=== PATIENT | female | born 1960 | race Caucasian/White ===

== ENCOUNTER → 2017-03-18 | Outpatient (CLI) | payer BC | LOC: MAMMO 10:06 | DX: Z12.31 Encounter for screening mammogram for malignant neoplasm of breast (principal) | CPT/HCPCS: G0202 ==

== ENCOUNTER → 2017-09-22 | Outpatient (CLI) | payer OTHER ==
[2017-09-22 08:01] LABS: ALBUMIN 3.8 g/dL (3.5-5.0); BUN/CREATININE RATIO 28.6 (6.0-26.0); POTASSIUM 4.3 mmol/L (3.6-5.0); TOTAL BILIRUBIN 0.5 mg/dL (0.2-1.3)
== END ==
LOC: LAB 07:32 → RAD 07:32
PROVIDERS: Family Medicine
DX: J06.9 Acute upper respiratory infection, unspecified (principal); Z13.1 Encounter for screening for diabetes mellitus; Z13.6 Encounter for screening for cardiovascular disorders; K57.50 Diverticulosis of both small and large intestine without perforation or abscess without bleeding

== ENCOUNTER → 2017-09-28 | Outpatient (CLI) | payer OTHER | LOC: LAB 08:38 | DX: K57.50 Diverticulosis of both small and large intestine without perforation or abscess without bleeding (principal) ==

== ENCOUNTER → 2018-04-14 | Outpatient (CLI) | payer OTHER | LOC: LAB 08:39 | DX: N30.01 Acute cystitis with hematuria (principal) ==

== ENCOUNTER → 2018-06-15 | Outpatient (CLI) | payer OTHER | LOC: MAMMO 13:47 | DX: Z12.31 Encounter for screening mammogram for malignant neoplasm of breast (principal) ==

== ENCOUNTER → 2019-02-08 | Outpatient (CLI) | payer OTHER ==
[2019-02-08 15:56] LABS: BASO # 0.1 (0.02-0.10); EOS # 0.3 (0.04-0.40); EOS % 3.7 % (1.0-5.0); HEMATOCRIT 43.7 % (37.0-47.0); HEMOGLOBIN 14.7 g/dL (12.5-16.0); LYMPH# 1.8 (1.50-4.00); MEAN CELL VOLUME 89 fl (78-100); MEAN CORPUSCULAR HEMOGLOBIN 30 pg (27-31); MEAN CORPUSCULAR HGB CONC 34 g/dL (33-37); MEAN PLATELET VOLUME 9.3 fl (7.4-10.4); MONO # 0.6 (0.20-0.80); NEU # 4.3 (1.40-6.50); PLATELET COUNT 255 K/mm3 (130-400); RED BLOOD COUNT 4.93 M/mm3 (4.10-5.30); RED CELL DISTRIBUTION WIDTH 12.9 % (11.5-14.5); WHITE BLOOD COUNT 7.1 K/mm3 (4.8-10.8)
[2019-02-08 16:06] LABS: POTASSIUM 4.1 mmol/L (3.5-5.1)
[2019-02-08 16:07] LABS: ALBUMIN 4.2 g/dL (3.5-5.0)
[2019-02-08 16:08] LABS: CALCIUM 9.8 mg/dL (8.3-10.5)
[2019-02-08 16:09] LABS: TOTAL PROTEIN 8.2 g/dL (6.4-8.3)
[2019-02-08 16:11] LABS: TOTAL BILIRUBIN 0.3 mg/dL (0.2-1.2)
== END ==
LOC: LAB 15:47
PROVIDERS: Family Medicine
DX: Z00.00 Encounter for general adult medical examination without abnormal findings (principal); Z13.220 Encounter for screening for lipoid disorders

== ENCOUNTER → 2019-02-14 | Outpatient (CLI) | payer OTHER ==
[~2019-02-14] VITALS: Ht 162.6 cm; Wt 112.7 kg
[~2019-02-14] MED LIST: CYCLOBENZAPRINE10 M1 PO; FLONASE ALLERG9.9 ML NS; LEXAPRO 10MG10 MG PO; XANAX0.25 M1 PO
[2019-02-14 16:24] VITALS: BP 134/84
== END ==
LOC: RAD 15:33 → LAB 15:33
DX: R07.9 Chest pain, unspecified (principal)

== ENCOUNTER → 2019-06-16 | Outpatient (CLI) | payer OTHER ==
[2019-02-14 16:24] VITALS: BP 134/84
== END ==
LOC: MAMMO 09:15
DX: Z12.31 Encounter for screening mammogram for malignant neoplasm of breast (principal)

== ENCOUNTER → 2019-12-21 | Outpatient (CLI) | payer OTHER ==
[2019-02-14 16:24] VITALS: BP 134/84
== END ==
LOC: LAB 12-19 11:59
DX: Z20.828 Contact with and (suspected) exposure to other viral communicable diseases (principal)

== ENCOUNTER → 2020-05-24 | Outpatient (CLI) | payer OTHER ==
[2019-02-14 16:24] VITALS: BP 134/84
[2020-05-24 08:46] LABS: ALBUMIN 4.2 g/dL (3.5-5.0)
[2020-05-24 08:47] LABS: CALCIUM 9.3 mg/dL (8.3-10.5)
[2020-05-24 08:48] LABS: TOTAL PROTEIN 7.1 g/dL (6.4-8.3)
[2020-05-24 08:50] LABS: TOTAL BILIRUBIN 0.4 mg/dL (0.2-1.2)
[2020-05-24 08:58] LABS: EOS # 0.2 (0.04-0.40); EOS % 2.9 % (1.0-5.0); HEMATOCRIT 44.5 % (37.0-47.0); HEMOGLOBIN 15.1 g/dL (12.5-16.0); LYMPH# 1.5 (1.50-4.00); MEAN CELL VOLUME 88 fl (78-100); MEAN CORPUSCULAR HEMOGLOBIN 30 pg (27-31); MEAN CORPUSCULAR HGB CONC 34 g/dL (33-37); MEAN PLATELET VOLUME 9.4 fl (7.4-10.4); MONO # 0.5 (0.20-0.80); NEU # 3.3 (1.40-6.50); PLATELET COUNT 246 K/mm3 (130-400); RED BLOOD COUNT 5.05 M/mm3 (4.10-5.30); RED CELL DISTRIBUTION WIDTH 12.4 % (11.5-14.5); WHITE BLOOD COUNT 5.4 K/mm3 (4.8-10.8)
== END ==
LOC: LAB 05-23 11:22
PROVIDERS: Family Medicine
DX: Z00.00 Encounter for general adult medical examination without abnormal findings (principal); E78.5 Hyperlipidemia, unspecified

== ENCOUNTER → 2020-06-19 | Outpatient (CLI) | payer OTHER ==
[2019-02-14 16:24] VITALS: BP 134/84
== END ==
LOC: MAMMO 09:58
DX: Z12.31 Encounter for screening mammogram for malignant neoplasm of breast (principal)

== ENCOUNTER → 2021-05-29 | Outpatient (CLI) | payer OTHER ==
[2021-05-29 10:38] LABS: BASO # 0.03 K/mm3 (0.02-0.10); EOS # 0.33 K/mm3 (0.04-0.40); EOS % 4.4 % (1.0-5.0); HEMATOCRIT 47.6 % (37.0-47.0); HEMOGLOBIN 15.7 g/dL (12.5-16.0); LYMPH# 1.27 K/mm3 (1.50-4.00); MEAN CELL VOLUME 91 fl (78-100); MEAN CORPUSCULAR HEMOGLOBIN 30 pg (27-31); MEAN CORPUSCULAR HGB CONC 33 g/dL (33-37); MONO # 0.72 K/mm3 (0.20-0.80); NEU # 5.07 K/mm3 (1.40-6.50); PLATELET COUNT 269 K/mm3 (130-400); RED BLOOD COUNT 5.23 M/mm3 (4.10-5.30); RED CELL DISTRIBUTION WIDTH 12.2 % (11.5-14.5); WHITE BLOOD COUNT 7.5 K/mm3 (4.8-10.8)
[2021-05-29 10:44] LABS: ALBUMIN 4.3 g/dL (3.4-4.8); POTASSIUM 4.5 mmol/L (3.5-5.1)
[2021-05-29 10:45] LABS: CALCIUM 9.6 mg/dL (8.3-10.5)
[2021-05-29 10:47] LABS: TOTAL PROTEIN 7.2 g/dL (6.2-8.1)
[2021-05-29 10:48] LABS: TOTAL BILIRUBIN 0.7 mg/dL (0.2-1.2)
== END ==
LOC: LAB 10:27
PROVIDERS: Family Medicine
DX: E78.5 Hyperlipidemia, unspecified (principal)

== ENCOUNTER → 2021-06-11 | Outpatient (CLI) | payer OTHER | LOC: RAD 14:26 | DX: M17.12 Unilateral primary osteoarthritis, left knee (principal) ==

== ENCOUNTER → 2021-06-19 | Outpatient (CLI) | payer OTHER | LOC: RAD 09:19 | DX: M17.12 Unilateral primary osteoarthritis, left knee (principal) ==

== ENCOUNTER → 2021-06-27 | Outpatient (CLI) | payer OTHER | LOC: MAMMO 09:02 | DX: Z12.31 Encounter for screening mammogram for malignant neoplasm of breast (principal) ==

== ENCOUNTER → 2021-07-17 | Outpatient (CLI) | payer OTHER | LOC: LAB 11:23 | DX: N39.0 Urinary tract infection, site not specified (principal) ==

== ENCOUNTER → 2021-08-12 | Outpatient (CLI) | payer OTHER | LOC: RAD 08:07 | DX: U07.1 COVID-19 (principal) ==

== ENCOUNTER → 2021-10-31 | Outpatient (CLI) | payer OTHER ==
[2021-10-31 09:39] LABS: URINE APPEARANCE HAZY; URINE COLOR YELLOW
[2021-10-31 09:52] LABS: URINE BILIRUBIN NEGATIVE (NEGATIVE); URINE BLOOD TRACE (NEGATIVE); URINE GLUCOSE NEGATIVE (NEGATIVE); URINE KETONE NEGATIVE (NEGATIVE); URINE LEUKOCYTE ESTERASE NEGATIVE (NEGATIVE); URINE NITRATE NEGATIVE (NEGATIVE); URINE PROTEIN(semi-quant) NEGATIVE (NEGATIVE); URINE UROBILINOGEN NORMAL (NORMAL); URINE WBC 0-1 /hpf (0-3)
== END ==
LOC: LAB 08:05
PROVIDERS: Physician Assistant
DX: R30.9 Painful micturition, unspecified (principal)

== ENCOUNTER → 2021-12-13 | Outpatient (CLI) | payer OTHER | LOC: RAD 09:44 | DX: N13.30 Unspecified hydronephrosis (principal); N30.20 Other chronic cystitis without hematuria ==

== ENCOUNTER → 2022-05-28 | Outpatient (CLI) | payer OTHER ==
[~2022-05-28] MED LIST changes: +ASPIRIN E.C. 8181 MG; +CLARITIN LIQUI-10 MG PO; +ESCITALOPRAM20 MG PO; +ONDANSETRON HYDR4 MG PO; +VALIUM 2MG T2 MG/TAB PO
== END ==
LOC: LAB 10:39
DX: Z00.00 Encounter for general adult medical examination without abnormal findings (principal); Z12.39 Encounter for other screening for malignant neoplasm of breast; E78.5 Hyperlipidemia, unspecified; J30.9 Allergic rhinitis, unspecified; E66.9 Obesity, unspecified; F32.A Depression, unspecified; E55.9 Vitamin D deficiency, unspecified; I10 Essential (primary) hypertension

== ENCOUNTER → 2022-06-11 | Outpatient (CLI) | payer OTHER | LOC: RAD 08:14 | DX: M17.12 Unilateral primary osteoarthritis, left knee (principal) ==

== ENCOUNTER → 2022-10-01 | Outpatient (CLI) | payer OTHER | LOC: LAB 10:07 | DX: M17.11 Unilateral primary osteoarthritis, right knee (principal) ==

== ENCOUNTER → 2023-06-16 | Outpatient (CLI) | payer OTHER ==
[~2023-06-16] VITALS: Ht 162.6 cm; Wt 112.7 kg
[2023-06-16 08:00] VITALS: BP 141/90
[2023-06-16 09:30] VITALS: BP 159/90
== END ==
LOC: AMSURD 07:46
DX: R11.0 Nausea (principal); R51.9 Headache, unspecified
CPT/HCPCS: J1885; J2405; J7030

== ENCOUNTER → 2023-07-01 | Outpatient (CLI) | payer OTHER | LOC: MAMMO 09:03 | DX: Z00.00 Encounter for general adult medical examination without abnormal findings (principal); Z12.31 Encounter for screening mammogram for malignant neoplasm of breast ==

== ENCOUNTER → 2023-09-21 | Outpatient (CLI) | payer OTHER ==
[2023-09-21 09:36] LABS: PH-URINE 5.5 (5.0 - 8.0); URINE APPEARANCE CLOUDY (CLEAR); URINE COLOR YELLOW (YELLOW); URINE GLUCOSE NEGATIVE (NEGATIVE); URINE PROTEIN(semi-quant) NEGATIVE (NEGATIVE)
[2023-09-21 09:37] LABS: URINE BILIRUBIN NEGATIVE (NEGATIVE); URINE BLOOD 1+ (NEGATIVE); URINE KETONE NEGATIVE (NEGATIVE); URINE LEUKOCYTE ESTERASE 2+ (NEGATIVE); URINE NITRATE NEGATIVE (NEGATIVE); URINE WBC >50 /hpf (0-3)
[2023-09-21 09:44] LABS: URINE MUCUS PRESENT (NOT PRESENT)
== END ==
LOC: LAB 08:02
PROVIDERS: Family Medicine
DX: N39.0 Urinary tract infection, site not specified (principal)

== ENCOUNTER → 2024-02-17 | Outpatient (CLI) | payer OTHER | LOC: RAD 06:59 | DX: M17.12 Unilateral primary osteoarthritis, left knee (principal) ==

== ENCOUNTER → 2024-04-28 | Outpatient (CLI) | payer OTHER ==
[~2024-04-28] VITALS: Ht 162.6 cm; Wt 112.7 kg
[~2024-04-28] MED LIST changes: +KAPSPARGO SPRIN25 MG PO; +NS 1,000 ML IV SCH
[2024-04-28 17:12] VITALS: BP 140/77
== END ==
LOC: AMSURD 16:55
DX: E86.0 Dehydration (principal); A08.4 Viral intestinal infection, unspecified
CPT/HCPCS: J7030

== ENCOUNTER → 2024-06-14 | Outpatient (CLI) | payer OTHER ==
[~2024-06-14] MED LIST changes: -NS 1,000 ML IV SCH
[2024-06-14 06:57] LABS: BASO # 0.02 K/mm3 (0.02-0.10); EOS # 0.25 K/mm3 (0.04-0.40); EOS % 4.1 % (1.0-5.0); HEMATOCRIT 43.4 % (37.0-47.0); HEMOGLOBIN 14.4 g/dL (12.5-16.0); LYMPH# 1.17 K/mm3 (1.50-4.00); MEAN CELL VOLUME 92 fl (78-100); MEAN CORPUSCULAR HEMOGLOBIN 31 pg (27-31); MEAN CORPUSCULAR HGB CONC 33 g/dL (33-37); MEAN PLATELET VOLUME 9.1 fl (7.4-10.4); MONO # 0.39 K/mm3 (0.20-0.80); NEU # 4.18 K/mm3 (1.40-6.50); PLATELET COUNT 242 K/mm3 (130-400); RED BLOOD COUNT 4.72 M/mm3 (4.10-5.30); RED CELL DISTRIBUTION WIDTH 12.1 % (11.5-14.5)
[2024-06-14 08:17] LABS: ALBUMIN 3.9 g/dL (3.4-4.8)
[2024-06-14 08:18] LABS: CALCIUM 9.6 mg/dL (8.3-10.5)
[2024-06-14 08:20] LABS: TOTAL PROTEIN 6.5 g/dL (6.2-8.1)
[2024-06-14 08:21] LABS: TOTAL BILIRUBIN 0.8 mg/dL (0.2-1.2)
== END ==
LOC: LAB 06:13
PROVIDERS: Family Medicine
DX: I10 Essential (primary) hypertension (principal); E55.9 Vitamin D deficiency, unspecified; E78.5 Hyperlipidemia, unspecified; R53.83 Other fatigue

== ENCOUNTER → 2024-07-01 | Outpatient (CLI) | payer OTHER | LOC: MAMMO 07:03 | DX: Z12.31 Encounter for screening mammogram for malignant neoplasm of breast (principal); R06.00 Dyspnea, unspecified; R05.9 Cough, unspecified ==

== ENCOUNTER → 2024-08-18 | Outpatient (CLI) | payer OTHER | LOC: LAB 15:53 | DX: E55.9 Vitamin D deficiency, unspecified (principal) ==